=== PATIENT | female | born 1970 | race Two or more races ===

== ENCOUNTER 2019-09-23 15:19 | Outpatient (CLI) | payer OTHER | END 2019-09-23 15:34 | disposition home or self-care (01) | LOC: MAMO-SONO 15:19 | DX: Z12.31 Encounter for screening mammogram for malignant neoplasm of breast (principal); Z87.898 Personal history of other specified conditions; N63.10 Unspecified lump in the right breast, unspecified quadrant; N63.20 Unspecified lump in the left breast, unspecified quadrant ==

== ENCOUNTER 2020-07-07 14:59 | Outpatient (CLI) | payer OTHER | END 2020-07-07 15:20 | disposition home or self-care (01) | LOC: MAMO-SONO 14:59 | DX: N60.11 Diffuse cystic mastopathy of right breast (principal); N60.12 Diffuse cystic mastopathy of left breast ==

== ENCOUNTER 2021-01-11 13:37 | Outpatient (CLI) | payer OTHER | END 2021-01-11 13:47 | disposition home or self-care (01) | LOC: MAMO-SONO 13:37 | PROVIDERS: ATTEND Surgery | DX: N60.11 Diffuse cystic mastopathy of right breast (principal); N60.12 Diffuse cystic mastopathy of left breast ==

== ENCOUNTER 2021-08-15 14:04 | Outpatient (CLI) | payer OTHER | END 2021-08-15 14:06 | disposition home or self-care (01) | LOC: SONOGRAMA 14:04 | PROVIDERS: ATTEND Surgery | DX: N60.11 Diffuse cystic mastopathy of right breast (principal); N60.12 Diffuse cystic mastopathy of left breast ==

== ENCOUNTER 2022-02-27 13:26 | Outpatient (CLI) | payer OTHER | END 2022-02-27 13:33 | disposition home or self-care (01) | LOC: MAMO-SONO 13:26 | DX: Z12.31 Encounter for screening mammogram for malignant neoplasm of breast (principal); N60.11 Diffuse cystic mastopathy of right breast; N60.12 Diffuse cystic mastopathy of left breast; N64.4 Mastodynia; N64.52 Nipple discharge; R92.8 Other abnormal and inconclusive findings on diagnostic imaging of breast; R92.2 Inconclusive mammogram; Z85.3 Personal history of malignant neoplasm of breast; Z80.3 Family history of malignant neoplasm of breast; Z80.8 Family history of malignant neoplasm of other organs or systems; Z12.39 Encounter for other screening for malignant neoplasm of breast ==

== ENCOUNTER 2023-03-05 13:17 | Outpatient (CLI) | payer OTHER | END 2023-03-05 13:29 | disposition home or self-care (01) | LOC: MAMO-SONO 13:17 | DX: N60.11 Diffuse cystic mastopathy of right breast (principal); N60.12 Diffuse cystic mastopathy of left breast; Z12.31 Encounter for screening mammogram for malignant neoplasm of breast ==